=== PATIENT | female | born 1965 | race Caucasian/White ===

== ENCOUNTER 2016-04-22 11:54 | Emergency (ER) | payer OTHER ==
[2016-04-22 12:11] VITALS: BP 134/63; PULSE 83; TEMP 97.9; BMI 30.7
--- NOTE | 2016-04-22 12:59 | PDOC ---
History of Present Illness - General Chief Complaint: Rash Stated Complaint: REACTION Time Seen by Provider: 04/22/16 12:25 History Source: Patient Exam Limitations: No Limitations - History of Present Illness Initial Comments: 04/22/16 13:09 Patient came for evaluation of swelling and mild immobility to the right side of her face. States onset was March 28 when she's had some tenderness, and was evaluated by WILLEM Miranda and provided penicillin which she finished that course. States there was no improvement and had an onset of wheals to her thighs proximally 10 days after initiation of this course. Patient states are mildly pruritic. Was evaluated by ENT days ago who recommended additional course of amoxicillin and written a prescription for an x-ray of facial bones. Patient states the ENT Dr. used a scope and did not find any pathology with her sinuses or throat. Both of those doctors worried about a dental abscess which patient denies any recent dental injury, pain, swelling to gums or any oral issue. Timing/Duration: unsure (10 days) Severity: moderate Modifying Factors: improves with: medication Associated Symptoms: reports: malaise. denies: fever/chills, loss of appetite Past History - Travel Traveled outside of the country in the last 30 days: No Close contact w/someone who was outside of country & ill: No - Past Medical History Allergies/Adverse Reactions: Allergies Allergy/AdvReac Type Severity Reaction Status Date / Time No Known Allergies Allergy Verified 04/22/16 12:12 Home Medications: Ambulatory Orders Clindamycin Oral Solution [Cleocin Oral Solution -] 300 mg PO Q8H #400 ml Diphenhydramine [Benadryl 12.5 MG/5 ML Oral Solution -] 12.5 mg PO Q6H PRN #140 ml 04/22/16 Anemia: No Asthma: No Cancer: No Cardiac Disorders: No CVA: No COPD: No CHF: No Dementia: No Diabetes: No GI Disorders: No Disorders: No HTN: No Hypercholesterolemia: No Liver Disease: No Seizures: No Thyroid Disease: No - Surgical History Abdominal Surgery: Yes (TUMMY TUCK,LAP BAND) Appendectomy: No Cardiac Surgery: No Cholecystectomy: No Lung Surgery: No Neurologic Surgery: No Orthopedic Surgery: No - Immunization History Td Vaccination: No - Psycho/Social/Smoking Cessation Hx Anxiety: Yes Suicidal Ideation: No Smoking Status: Yes Smoking History: Never smoked Have you smoked in the past 12 months: Yes Number of Cigarettes Smoked Daily: 20 Information on smoking cessation initiated: No 'Breaking Loose' booklet given: 01/05/16 Hx Alcohol Use: No Drug/Substance Use Hx: No Substance Use Type: None Hx Substance Use Treatment: No Review of Systems - Review of Systems Able to Perform ROS?: Yes Is the patient limited Bangladeshi proficient: Yes Constitutional: Yes: Symptoms Reported, See HPI Respiratory: Yes: Symptoms reported ABD/GI: No: Symptoms Reported Musculoskeletal: No: Symptoms Reported Integumentary: Yes: Symptoms Reported All Other Systems: Reviewed and Negative *Physical Exam - Vital Signs Last Vital Signs Temp Pulse Resp BP Pulse Ox 97.9 F 83 18 134/63 98 04/22/16 12:08 04/22/16 12:08 04/22/16 12:08 04/22/16 12:08 04/22/16 12:08 - Physical Exam General Appearance: Yes: Nourished, Appropriately Dressed, Apparent Distress, Mild Distress, Moderate Distress HEENT: positive: GLENNA, TMs Normal, Nasal Congestion, Rhinorrhea, Other (shunt has palpable firm and tender mass at the right nasal labile fold under skin, no erythema, no pointing, no evidence of trauma or skin break. Mouth has no swelling, tenderness, or any dental injury/pain. MAsses approximately 3 cm) Neck: positive: Supple. negative: Tender, Lymphadenopathy (R), Lymphadenopathy (L) Respiratory/Chest: positive: Lungs Clear, Normal Breath Sounds Gastrointestinal/Abdominal: positive: Normal Bowel Sounds, Soft. negative: Tender Integumentary: positive: Normal Color. 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, Fully Oriented, Alert, Normal Mood/ Affect, Normal Response, Motor Strength 5/5 ED Treatment Course - RADIOLOGY Radiology Studies Ordered: Category Date Time Status FACIAL BONES CT W/O CONTRAST [CT] Stat CT Scan 04/22/16 12:49 Ordered Medical Decision Making - Medical Decision Making 04/22/16 14:16 *DC/Admit/Observation/Transfer Diagnosis at time of Disposition: Cellulitis and abscess of face - Discharge Dispostion Disposition: HOME Condition at time of disposition: Stable Admit: No - Prescriptions Prescriptions: Diphenhydramine [Benadryl 12.5 MG/5 ML Oral Solution -] 12.5 mg PO Q6H PRN #140 ml PRN Reason: itching Clindamycin Oral Solution [Cleocin Oral Solution -] 300 mg PO Q8H #400 ml - Referrals Referrals: Aldair Green MD [Primary Care Provider] - - Patient Instructions Printed Discharge Instructions: DI for Cellulitis -- Adult Additional Instructions: Fast tissue swelling to face possible abscess, will treat with clindamycin as patient has potential penicillin ALLERGY. - Post Discharge Activity Work/School Note: Back to Work
[2016-04-22] MEDS ORDERED: CLINDAMYCIN HCL 150 MG CAPSULE (FP) PO ONE (14:15)
== END 2016-04-22 15:11 | disposition home or self-care (01) ==
LOC: JERFT 11:54 → JER 11:54 → JERFT 15:11
DX: L03.211 Cellulitis of face (principal)
CPT/HCPCS: 70486-TC; 99281-25

== ENCOUNTER 2016-05-13 17:50 | Emergency (ER) | payer OTHER ==
[2016-05-13 18:25] VITALS: TEMP 98.4; BMI 29.9
--- NOTE | 2016-05-13 19:32 | PDOC ---
History of Present Illness <Mayank James - Last Filed: 05/13/16 20:15> - History of Present Illness Initial Comments: 05/13/16 20:23 The patient is a 51 year old female, with a significant past medical history of arthritis, who presents to the emergency department with increased swelling to her right face since March. She reports being seen by an oral and maxillary surgeon on 05/01 where she had xrays and a CT scan to rule out abscess. She reports also having a biopsy performed 5 days ago and is pending results. The patient presents today because she states the swelling has increased to the bridge of her nose and creating a frontal headache. The patient states the swelling is usually worse in the morning, however, slightly subsides by the end of the day, but became concerned today when the swelling did not subside. She denies chest pain, shortness of breath, headache and dizziness. She denies fever, chills, nausea, vomit, diarrhea and constipation. She denies dysuria, frequency, urgency and hematuria. Allergies: NKDA Past surgical history: tubal ligation, lap-band/tummy tuck Social history: tobacco use ENT: Dr. Serge Vargas <Iliana Adams - Last Filed: 05/13/16 20:39> - General Chief Complaint: Edema Stated Complaint: RT SIDE FACE SWOLLEN/PAIN Time Seen by Provider: 05/13/16 19:17 Past History - Past Medical History Anemia: No Asthma: No Cancer: No Cardiac Disorders: No CVA: No COPD: No CHF: No Dementia: No Diabetes: No GI Disorders: No Disorders: No HTN: No Hypercholesterolemia: No Liver Disease: No Seizures: No Thyroid Disease: No Other medical history: PT DENIES MEDICAL HX - Surgical History Abdominal Surgery: Yes (TUMMY TUCK,LAP BAND) Appendectomy: No Cardiac Surgery: No Cholecystectomy: No Lung Surgery: No Neurologic Surgery: No Orthopedic Surgery: No - Immunization History Td Vaccination: No - Psycho/Social/Smoking Cessation Hx Anxiety: Yes Suicidal Ideation: No Smoking Status: Yes Smoking History: Never smoked Have you smoked in the past 12 months: Yes Number of Cigarettes Smoked Daily: 20 Information on smoking cessation initiated: No 'Breaking Loose' booklet given: 01/05/16 Hx Alcohol Use: No Drug/Substance Use Hx: No Substance Use Type: None Hx Substance Use Treatment: No <Mayank James - Last Filed: 05/13/16 20:15> <Iliana Adams - Last Filed: 05/13/16 20:39> - Past Medical History Allergies/Adverse Reactions: Allergies Allergy/AdvReac Type Severity Reaction Status Date / Time No Known Allergies Allergy Verified 05/13/16 18:16 Home Medications: Ambulatory Orders Clindamycin Oral Solution [Cleocin Oral Solution -] 300 mg PO Q8H #400 ml Diphenhydramine [Benadryl 12.5 MG/5 ML Oral Solution -] 12.5 mg PO Q6H PRN #140 ml 04/22/16 Review of Systems - Review of Systems Able to Perform ROS?: Yes Comments:: 05/13/16 20:29 CONSTITUTIONAL: Absent: fever, chills, diaphoresis, generalized weakness, malaise, loss of appetite HEENT: (+) Right sided face swelling. Absent: rhinorrhea, nasal congestion, throat pain , throat swelling, difficulty swallowing, mouth swelling, ear pain, eye pain, visual Changes CARDIOVASCULAR: Absent: chest pain, syncope, palpitations, irregular heart rate, lightheadedness , peripheral edema RESPIRATORY: Absent: cough, shortness of breath, dyspnea with exertion, orthopnea, wheezing, stridor, hemoptysis GASTROINTESTINAL: Absent: abdominal pain, abdominal distension, nausea, vomiting, diarrhea, constipation, melena, hematochezia GENITOURINARY: Absent: dysuria, frequency, urgency, hesitancy, hematuria, flank pain, genital pain MUSCULOSKELETAL: Absent: myalgia, arthralgia, joint swelling SKIN: Absent: rash, itching, pallor HEMATOLOGIC/IMMUNOLOGIC: Absent: easy bleeding, easy bruising, lymphadenopathy, frequent infections ENDOCRINE: Absent: unexplained weight gain, unexplained weight loss, heat intolerance, cold intolerance NEUROLOGIC: (+) headache. Absent: focal weakness or paresthesias, dizziness, unsteady gait , seizure, mental status changes, bladder or bowel incontinence PSYCHIATRIC: Absent: anxiety, depression, suicidal or homicidal ideation, hallucinations. <Iliana Adams - Last Filed: 05/13/16 20:39> *Physical Exam - Vital Signs Last Vital Signs Temp Pulse Resp BP Pulse Ox 98.4 F 86 18 125/94 97 05/13/16 18:12 05/13/16 18:12 05/13/16 18:12 05/13/16 18:12 05/13/16 18:12 <JacobMayank - Last Filed: 05/13/16 20:15> - Vital Signs Last Vital Signs Temp Pulse Resp BP Pulse Ox 98.4 F 86 18 125/94 97 05/13/16 18:12 05/13/16 18:12 05/13/16 18:12 05/13/16 18:12 05/13/16 18:12 - Physical Exam Comments: 05/13/16 20:30 GENERAL: Well developed, well nourished. Awake and alert. No acute distress. HEENT: (+) palpable, firm, indurated, immobile, right sided mass. slightly tender to palpation. No sign of topical cellulitis. No necrotic teeth. No tongue or oral lesion. No submandibular lymphadenopathy. Normocephalic, atraumatic. PERRLA, EOMI. No conjunctival pallor. Sclera are non-icteric. Moist mucous membranes. Oropharynx is clear. NECK: Supple. Full ROM. No JVD. Carotid pulses 2+ and symmetric, without bruits. No thyromegaly. No lymphadenopathy. CARDIOVASCULAR: Regular rate and rhythm. No murmurs, rubs, or gallops. Distal pulses are 2+ and symmetric. PULMONARY: No evidence of respiratory distress. Lungs clear to auscultation bilaterally. No wheezing, rales or rhonchi. ABDOMINAL: Soft. Non-tender. Non-distended. No rebound or guarding. No organomegaly. Normoactive bowel sounds. MUSCULOSKELETAL Normal range of motion at all joints. No bony deformities or tenderness. No CVA tenderness. EXTREMITIES: No cyanosis. No clubbing. No edema. No calf tenderness. SKIN: Warm and dry. Normal capillary refill. No rashes. No jaundice. NEUROLOGICAL: Alert, awake, appropriate. Cranial nerves 2-12 intact. Normoreflexic in the upper and lower extremities. Normal speech. Toes are down-going bilaterally. Gait is normal without ataxia. PSYCHIATRIC: Cooperative. Good eye contact. Appropriate mood and affect. <Iliana Adams - Last Filed: 05/13/16 20:39> Medical Decision Making - Medical Decision Making 05/13/16 19:35 I have reviewed all the the provided document BIB patient including CT results and discharge packet from previous ER visit. Biopsy report is still pending. Dr. Serge Vargas was paged at 19:35 requesting a callback for doctor to doctor consult. At 19:45, the ENT on-call covering physician, Dr. Ramos returned our call and the patient's case was discussed in detail. ENT specialist advises the patient to follow-Up with Head/Neck Surgeons Dr. Reza Leyva or Dr. JEAN-PIERRE Cunningham at [facility]. <Iliana Adams - Last Filed: 05/13/16 20:39> *DC/Admit/Observation/Transfer - Discharge Dispostion Admit: No - Attestations Physician Attestion: 05/13/16 20:16 Patient is following up with Head and Neck Surgery at [facility]. <Mayank James - Last Filed: 05/13/16 20:15> - Attestations Scribe Attestion: 05/13/16 20:39 Documentation prepared by Iliana Adams, acting as medical facilities section director for Mayank James MD, MD <Iliana Adams - Last Filed: 05/13/16 20:39> Diagnosis at time of Disposition: Swelling, mass, or lump on face - Discharge Dispostion Disposition: HOME - Referrals Referrals: Aldair Green MD [Primary Care Provider] - - Patient Instructions Additional Instructions: follow up with Head and Neck Surgery at [facility]
[2016-05-13 20:24] VITALS: BP 130/70; PULSE 70
== END 2016-05-13 20:24 | disposition home or self-care (01) ==
LOC: JER 17:50
DX: R22.9 Localized swelling, mass and lump, unspecified (principal)
CPT/HCPCS: 99283-25

== ENCOUNTER 2016-08-14 10:12 | Inpatient (IN) | payer OTHER ==
--- NOTE | 2016-08-14 10:25 | PDOC ---
History of Present Illness <Silvestre Rios - Last Filed: 08/14/16 12:42> - History of Present Illness Initial Comments: 08/14/16 13:10 The patient is a 51 year old female, with a significant past medical history of lap-band/tummy tuck and arthritis , who presents to the emergency department with progressively worsening epigastric burning and inability to hold down food for 4 weeks. She states her symptoms began as acid reflux which was shortly followed by a white, foam-like emesis after eating solid foods. She states she has not been able to eat a meal without experiencing a blockage as she points to her epigastric region. She states that about a week ago she noticed her symptoms we exacerbated after drinking water. She reports seeing her surgeon , Dr. Armand Romero twice in the past 2 weeks for evaluation of her symptoms, who suggested the patient may need revision to her lap-band. She also reports calling Dr. Melgoza office today who suggested she come to the ED for admission. The patient reports having 3 xrays of her chest and abdomen in the past 6-8 weeks. She also reports having water taken out from her stomach when she saw Dr. Romero, however, the patient is unsure of the exact date or the type of procedure that was performed for the extraction of fluid from her stomach. She denies chest pain, shortness of breath, headache and dizziness. She denies fever, chills, nausea, diarrhea and constipation. She denies dysuria, frequency , urgency and hematuria. Allergies: NKDA Social history: NKDA Surgeon: Dr. Armand Romero <Iliana Adams - Last Filed: 08/14/16 19:00> - General Chief Complaint: Nausea/Vomiting Stated Complaint: (PCP SENT) EVALUATION Time Seen by Provider: 08/14/16 10:25 Past History - Past Medical History Anemia: No Asthma: No Cancer: No Cardiac Disorders: No CVA: No COPD: No CHF: No Dementia: No Diabetes: No GI Disorders: No Disorders: No HTN: No Hypercholesterolemia: No Liver Disease: No Seizures: No Thyroid Disease: No - Surgical History Abdominal Surgery: Yes (TUMMY TUCK,LAP BAND) Appendectomy: No Cardiac Surgery: No Cholecystectomy: No Lung Surgery: No Neurologic Surgery: No Orthopedic Surgery: No - Immunization History Td Vaccination: No - Psycho/Social/Smoking Cessation Hx Anxiety: Yes Suicidal Ideation: No Smoking Status: Yes Smoking History: Current every day smoker Have you smoked in the past 12 months: Yes Number of Cigarettes Smoked Daily: 20 Information on smoking cessation initiated: Yes 'Breaking Loose' booklet given: 08/14/16 Hx Alcohol Use: No Drug/Substance Use Hx: No Substance Use Type: None Hx Substance Use Treatment: No <Silvestre Rios - Last Filed: 08/14/16 12:42> <Iliana Adams - Last Filed: 08/14/16 19:00> - Past Medical History Allergies/Adverse Reactions: Allergies Allergy/AdvReac Type Severity Reaction Status Date / Time No Known Allergies Allergy Verified 08/14/16 10:19 Home Medications: Ambulatory Orders Famotidine [Pepcid] 20 mg PO BID #60 tablet 08/14/16 Oxycodone HCl/Acetaminophen [Percocet 5-325 mg Tablet] 1 - 2 tab PO Q6H #28 tab MDD 4 08/14/16 Review of Systems - Review of Systems Able to Perform ROS?: Yes Comments:: 08/14/16 13:10 GENERAL/CONSTITUTIONAL: No fever or chills. No weakness. HEAD, EYES, EARS, NOSE AND THROAT: No change in vision. No ear pain or discharge. No sore throat. CARDIOVASCULAR: No chest pain or shortness of breath. RESPIRATORY: No cough, wheezing, or hemoptysis. GASTROINTESTINAL: (+) foam-like emesis after PO intake. Persistent epigastric burning. No nausea, diarrhea or constipation. GENITOURINARY: No dysuria, frequency, or change in urination. MUSCULOSKELETAL: No joint or muscle swelling or pain. No neck or back pain. SKIN: No rash NEUROLOGIC: No headache, vertigo, loss of consciousness, or change in strength/ sensation. ENDOCRINE: No increased thirst. No abnormal weight change. HEMATOLOGIC/LYMPHATIC: No anemia, easy bleeding, or history of blood clots. ALLERGIC/IMMUNOLOGIC: No hives or skin allergy. <Iliana Adams - Last Filed: 08/14/16 19:00> *Physical Exam - Vital Signs Last Vital Signs Temp Pulse Resp BP Pulse Ox 98.3 F 87 19 134/98 100 08/14/16 10:17 08/14/16 10:17 08/14/16 10:08/14/16 10:17 08/14/16 10:17 <Silvestre Rios - Last Filed: 08/14/16 12:42> - Vital Signs Last Vital Signs Temp Pulse Resp BP Pulse Ox 98.3 F 87 19 134/98 100 08/14/16 10:17 08/14/16 10:17 08/14/16 10:17 08/14/16 10:17 08/14/16 10:17 - Physical Exam Comments: 08/14/16 13:11 GENERAL: Awake, alert, and fully oriented, in no acute distress HEAD: No signs of trauma EYES: PERRLA, EOMI, sclera anicteric, conjunctiva clear ENT: Auricles normal inspection, hearing grossly normal, nares patent, oropharynx clear without exudates. Moist mucosa NECK: Normal ROM, supple, no lymphadenopathy, JVD, or masses LUNGS: Breath sounds equal, clear to auscultation bilaterally. No wheezes, and no crackles HEART: Regular rate and rhythm, normal S1 and S2, no murmurs, rubs or gallops ABDOMEN: Soft, nontender, normoactive bowel sounds. No guarding, no rebound. No masses EXTREMITIES: Normal range of motion, no edema. No clubbing or cyanosis. No cords, erythema, or tenderness NEUROLOGICAL: Cranial nerves II through XII grossly intact. Normal speech, normal gait SKIN: Warm, Dry, normal turgor, no rashes or lesions noted. <Iliana Adams - Last Filed: 08/14/16 19:00> Heart Score/ECG Review - ECG Intrepretation Comment:: 08/14/16 11:07 EKG was read by Dr. Rios at 11:05 Impression: Normal sinus rhythm. Possible left atrial enlargement. <Iliana Adams - Last Filed: 08/14/16 19:00> ED Treatment Course - LABORATORY CBC & Chemistry Diagram: 08/14/16 10:58 08/14/16 10:58 <Silvestre Rios - Last Filed: 08/14/16 12:42> - LABORATORY CBC & Chemistry Diagram: 08/14/16 10:58 08/14/16 10:58 - ADDITIONAL ORDERS Additional order review: Laboratory Results 08/14/16 08/14/16 08/14/16 11:09 10:58 10:58 INR Sodium 139 Potassium 3.8 Chloride 102 Carbon Dioxide 29 Anion Gap 8 BUN 19 H D Creatinine 0.6 Creat Clearance w eGFR > 60 Random Glucose 90 D Calcium 9.4 Total Bilirubin 0.5 D AST 18 D ALT 21 Alkaline Phosphatase 65 Creatine Kinase 50 Troponin I < 0.02 B-Natriuretic Peptide 30.55 Total Protein 7.0 Albumin 3.7 Lipase 121 Serum , Qual Negative Urine Color Dang Urine Appearance Cloudy Urine pH 5.0 Urine Protein 1+ H Urine Glucose (UA) Negative Urine Ketones Trace H Urine Blood 1+ H Urine Nitrite Negative Urine Bilirubin Negative Urine Urobilinogen Negative Ur Leukocyte Esterase Trace H Urine RBC 2 Urine WBC 12 Ur Epithelial Cells Many Calcium Oxalate Crystal Rare Urine Bacteria Moderate Urine Mucus Many 08/14/16 10:58 INR 1.15 H Sodium Potassium Chloride Carbon Dioxide Anion Gap BUN Creatinine Creat Clearance w eGFR Random Glucose Calcium Total Bilirubin AST ALT Alkaline Phosphatase Creatine Kinase Troponin I B-Natriuretic Peptide Total Protein Albumin Lipase Serum , Qual Urine Color Urine Appearance Urine pH Urine Protein Urine Glucose (UA) Urine Ketones Urine Blood Urine Nitrite Urine Bilirubin Urine Urobilinogen Ur Leukocyte Esterase Urine RBC Urine WBC Ur Epithelial Cells Calcium Oxalate Crystal Urine Bacteria Urine Mucus 08/14/16 10:58 RBC 5.34 H MCV 81.7 MCHC 32.9 RDW 15.5 MPV 7.9 Neutrophils % 68.0 Lymphocytes % 25.9 D Monocytes % 4.6 Eosinophils % 0.9 Basophils % 0.6 - RADIOLOGY Radiograph Interpretation: 08/14/16 18:59 Xray was read by Dr. Jacques at 13:29 Impression: No acute pathology. <Iliana Adams - Last Filed: 08/14/16 19:00> Medical Decision Making - Medical Decision Making 08/14/16 13:12 The patient is a 51 year old female who presents with persistent epigastric burning and emesis after PO intake for about 4 weeks. The patients medical history is significant for GERD s/p lapband procedure. I will obtain CXR, EKG, urinalysis and CBC to rule out dehydration, pancreatitis and I will consult Dr. Romero. Dr. Romero, General Surgeon, was called at the office and the patient's case was discussed. Dr. Romero will admit this patient and plans to see her tonight or early tomorrow morning for surgery. Dr. Arad requests the patient be NPO at this time. <Iliana Adams - Last Filed: 08/14/16 19:00> *DC/Admit/Observation/Transfer - Discharge Dispostion Admit: Yes - Attestations Physician Attestion: 08/14/16 10:25 I, Dr. Silvestre Rios, attest that this document has been prepared under my direction and personally reviewed by me in its entirety. I further attest, that it accurately reflects all work, treatment, procedures and medical decision -making performed by me. <Silvestre Rios - Last Filed: 08/14/16 12:42> - Attestations Scribe Attestion: 08/14/16 13:11 Documentation prepared by Iliana Adams, acting as medical office technologist for Silvestre Rios MD <Iliana Adams - Last Filed: 08/14/16 19:00> Diagnosis at time of Disposition: LAP-BAND surgery status, Reflux esophagitis Vomiting Qualifiers: Vomiting type: unspecified Vomiting Intractability: non-intractable Nausea presence: with nausea Qualified Code(s): R11.2 - Nausea with vomiting, unspecified - Discharge Dispostion Condition at time of disposition: Unchanged/Unknown - Prescriptions
[2016-08-14 11:58] LABS: BASOPHIL 0.6 % (0-2.0); EOSINOPHIL 0.9 % (0-4.5); MCH 26.9 pg (25.7-33.7); MCHC 32.9 g/dl (32.0-36.0); MEAN CELL VOLUME 81.7 fl (80-96); MEAN PLT VOLUME 7.9 fl (7.5-11.1); PLATELET COUNT 238 K/MM3 (134-434); RDW 15.5 % (11.6-15.6)
[2016-08-14 12:05] LABS: URINE APPEARANCE CLOUDY; URINE BILIRUBIN NEGATIVE (NEGATIVE); URINE COLOR AMBER; URINE GLUCOSE (UA) NEGATIVE (NEGATIVE); URINE KETONE TRACE (NEGATIVE); URINE NITRITE NEGATIVE (NEGATIVE); URINE UROBILINOGEN NEGATIVE E.U./dl (0.2-1.0)
[2016-08-14 12:14] LABS: URINE BLOOD 1+ (NEGATIVE); URINE LEUK ESTERASE TRACE (NEGATIVE); URINE PROTEIN 1+ (NEGATIVE)
[2016-08-14 12:20] LABS: ALBUMIN 3.7 g/dl (3.4-5.0); ANION GAP 8 (8-16); BILIRUBIN,TOTAL 0.5 mg/dL (0.2-1.0); CALCIUM 9.4 mg/dL (8.5-10.1); CO2 29 mmol/L (21-32); COCKROFT - GAULT 140.5645; CREATININE 0.6 mg/dL (0.55-1.02); GLUCOSE,RANDOM 90 mg/dL (74-106); SGOT/AST 18 U/L (15-37); SGPT/ALT 21 U/L (12-78)
[2016-08-14 12:23] LABS: ALK PHOS 65 U/L (45-117); TROPONIN I < 0.02 ng/ml (0.00-0.05)
[2016-08-14 12:30] LABS: INR 1.15 (0.82-1.09); PROTHROMBIN TIME (PATIENT) 12.7 SEC (9.98-11.88)
[2016-08-14] MEDS ORDERED: SODIUM CHLORIDE 1,000 ML IV ONE (12:39)
[2016-08-14 13:00] LABS: CALCIUM OXALATE CRYSTALS RARE /hpf (NONE SEEN); URINE BACTERIA MODERATE /hpf (NONE SEEN); URINE MUCUS MANY; URINE RBC 2 /hpf (0-3); URINE WBC 12 /hpf (3-5)
--- NOTE | 2016-08-14 14:03 | EKG ---
Test Reason : Blood Pressure : / mmHG Vent. Rate : 086 BPM Atrial Rate : 086 BPM P-R Int : 160 ms QRS Dur : 084 ms QT Int : 372 ms P-R-T Axes : 036 -16 009 degrees QTc Int : 445 ms NORMAL SINUS RHYTHM POSSIBLE LEFT ATRIAL ENLARGEMENT CANNOT RULE OUT ANTERIOR INFARCT , AGE UNDETERMINED ABNORMAL ECG WHEN COMPARED WITH ECG OF 03-OCT-2015 08:59, T WAVE VARIATION Confirmed by CHANTELL BUTLER MD ([id number]) on 08/14/2016 2:03:35 PM Referred By: Confirmed By:CHANTELL BUTLER MD
[2016-08-14] MEDS ORDERED: PANTOPRAZOLE SODIUM 40 MG/100 ML PRE-DOCKED IVPB SCH (17:45)
[2016-08-14 17:58] VITALS: BMI 26.4
[2016-08-14] MEDS ORDERED: HYDROmorphone HCL CARPU-JECT 1 MG/1 ML DISP.SYRIN IVPB PRN (18:23)
[2016-08-14] MEDS ORDERED: ONDANSETRON 4 MG/2 ML VIAL IVPB PRN ×2 (18:23→22:41)
[2016-08-14] MEDS ORDERED: SODIUM CHLORIDE 1,000 ML IV SCH ×2 (18:30→22:41)
--- NOTE | 2016-08-14 18:30 | HP ---
Admitting History and Physical - Admission Chief Complaint: Dysphagia, GERD, Abdominal pain History of Present Illness: 51 female s/p lap band with good weight loss results presents for dysphagia and difficulty tolerating any diet including clears Has had all of the fluid previously aspirated and is still having dysphagia despite the band being empty Presented to ER for dysphagia,reflux and abdominal pain mostly in the epigastric region History Source: Patient, Medical Record Limitations to Obtaining History: No Limitations - Past Medical History Gastrointestinal: Yes: Other (History of morbid obesity) ...LMP: 12/19/15 ...: No (URINE PREG TEST NEG) - Past Surgical History Past Surgical History: Yes: Bariatric Surgery (Lap Band) - Smoking History Smoking history: Current every day smoker Have you smoked in the past 12 months: Yes Aproximately how many cigarettes per day: 20 - Alcohol/Substance Use Hx Alcohol Use: No Home Medications - Allergies Allergies/Adverse Reactions: Allergies Allergy/AdvReac Type Severity Reaction Status Date / Time No Known Allergies Allergy Verified 08/14/16 10:19 - Home Medications Home Medications: Ambulatory Orders Famotidine [Pepcid] 20 mg PO BID #60 tablet 08/14/16 Oxycodone HCl/Acetaminophen [Percocet 5-325 mg Tablet] 1 - 2 tab PO Q6H #28 tab MDD 4 08/14/16 Family Disease History - Family Disease History Family History: Unremarkable Review of Systems - Review of Systems Constitutional: denies: Chills, Fever HENT: reports: Difficult Swallowing Neck: reports: No Symptoms Cardiovascular: denies: Chest Pain Respiratory: denies: Cough Gastrointestinal: reports: Abdominal Pain (Epigastric) Genitourinary: reports: No Symptoms Neurological: denies: Change in LOC Endocrine: reports: No Symptoms Hematology/Lymphatic: reports: No Symptoms Psychiatric: reports: No Symptoms Pain Intensity: 4 Physical Examination Vital Signs: Vital Signs Temperature 98.2 F 08/14/16 17:52 Pulse Rate 77 08/14/16 17:52 Respiratory Rate 20 08/14/16 17:52 Blood Pressure 138/81 08/14/16 17:52 O2 Sat by Pulse Oximetry (%) 99 08/14/16 15:40 Constitutional: Yes: Calm, Mild Distress HENT: Yes: Atraumatic Neck: Yes: Supple Cardiovascular: Yes: Regular Rate and Rhythm Respiratory: Yes: Regular Gastrointestinal: Yes: Soft, Tenderness (Mild epigastric tenderness). No: Distention, Tenderness, Rebound Renal/: No: CVA Tenderness - Right Extremities: Yes: WNL Neurological: Yes: Alert, Oriented Labs: CBC, BMP 08/14/16 10:58 08/14/16 10:58 Problem List - Problems (1) LAP-BAND surgery status Code(s): Z98.84 - BARIATRIC SURGERY STATUS (2) Dysphagia Code(s): R13.10 - DYSPHAGIA, UNSPECIFIED Qualifiers: Dysphagia type: oral phase Qualified Code(s): R13.11 - Dysphagia, oral phase (3) Abdominal pain Code(s): R10.9 - UNSPECIFIED ABDOMINAL PAIN Qualifiers: Abdominal location: epigastric Qualified Code(s): R10.13 - Epigastric pain (4) GERD (gastroesophageal reflux disease) Code(s): K21.9 - GASTRO-ESOPHAGEAL REFLUX DISEASE WITHOUT ESOPHAGITIS Qualifiers: Esophagitis presence: esophagitis presence not specified Qualified Code(s): K21.9 - Gastro-esophageal reflux disease without esophagitis Assessment/Plan 51 female s/p lap band placement with recurrent dysphagia, abdominal pain, and reflux All the fluid had been previously removed from the lap band and the patient is still having difficulty eating anything including clears due to the band Also had chronic epigastric pain and reflux from the band For laparoscopic revision of band/possible removal of band, port and components NPO IV fluids Risks and benefits explained Understands and agrees
[2016-08-14] MEDS ORDERED: BUPIVACAINE HCL/PF 0.5% (5MG/ML) 10 ML VIAL ONE (20:22)
[2016-08-14] MEDS ORDERED: PROPOFOL 20 ML ONE (20:22)
[2016-08-14] MEDS ORDERED: ROCURONIUM BROMIDE 50 MG/5 ML VIAL ONE (20:22)
[2016-08-14] MEDS ORDERED: DEXAMETHASONE SOD PHOSPHATE 4 MG/1 ML VIAL ONE ×2 (20:22→21:57)
[2016-08-14] MEDS ORDERED: ceFAZolin SODIUM 1 GM VIAL IVPB ONE (20:40)
[2016-08-14] MEDS ORDERED: METHYLENE BLUE 1% 10 MG/1 ML VIAL NR ONE ×2 (21:01→21:45)
[2016-08-14] MEDS ORDERED: HYDROmorphone HCL CARPU-JECT 1 MG/1 ML DISP.SYRIN IVPUSH PRN (21:11)
[2016-08-14] MEDS ORDERED: SODIUM CHLORIDE 0.9% P/F 10 ML VIAL IJ ONE (21:30)
[2016-08-14] MEDS ORDERED: NEOSTIGMINE METHYLSULFATE 0.5 MG/ML - 10 ML MDV ONE (21:52)
[2016-08-14] MEDS ORDERED: GLYCOPYRROLATE 0.2 MG/1 ML VIAL ONE (21:52)
[2016-08-14] MEDS ORDERED: BUPIVACAINE HCL/PF 0.5% (5MG/ML) 10 ML VIAL IJ ONE (22:03)
[2016-08-14] MEDS ORDERED: ACETAMINOPHEN 1000 MG/100 ML VIAL (NON FORMULARY) IVPB PRN ×2 (22:16→22:41)
--- NOTE | 2016-08-14 22:20 | OP ---
Operative Note - Note: Operative Date: 08/14/16 Pre-Operative Diagnosis: Dysphagia, abdominal pain, reflux Operation: Laparoscopic removal of lap band, port and components. Laparoscopic capsulotomy Findings: Gastric obstruction from lap band Post-Operative Diagnosis: Other (Dysphagia, abdominal pain, reflux from lap band obstruction) Surgeon: Armand Romero Surgical Aides Teacher: Ruben Medina Anesthesia: General Specimens Removed: None Estimated Blood Loss (mls): 5 Operative Report Dictated: Yes
[2016-08-14] MEDS ORDERED: HYDROmorphone HCL CARPU-JECT 2 MG/1 ML DISP.SYRIN ONE (22:24)
[2016-08-14] MEDS ORDERED: ACETAMINOPHEN INJECTION 100 ML IVPB ONE (22:48)
--- NOTE | 2016-08-14 23:52 | OP ---
DATE OF OPERATION: 08/14/2016 SURGEON: Armand Romero M.D. LONG GOODS DRIER: Ruben Medina M.D. PREOPERATIVE DIAGNOSIS: Dysphagia, abdominal pain, and reflux from likely lap band obstruction. POSTOPERATIVE DIAGNOSIS: Dysphagia, abdominal pain, and reflux from obstruction due to lap band. PROCEDURE: Laparoscopic removal of lap band, port and components, laparoscopic capsulotomy. SPECIMENS: None. ESTIMATED BLOOD LOSS: 5 mL. DRAINS: None. ANESTHESIA: GT. REASON FOR THE PROCEDURE: This is a 51-year-old female who presented to the ER for dysphagia with inability to tolerate any diet including clears, epigastric abdominal pain, and severe reflux. She had been seen previously on multiple occasions for band adjustments due to similar symptoms; however, at this time, the symptoms were progressively worse, and she was unable to tolerate anything p.o. Because of this, she was consented for a laparoscopic removal of gastric band, port and components. The risks and benefits of the procedure were explained, including bleeding, infection, hernia, CA, DVT, PE, injury to surrounding structures including the esophagus, stomach, spleen, colon, pancreas, vessel injury, nerve injury, gastric leak, persistent obstruction as some of the complications. She understood and agreed and signed informed consent. DESCRIPTION OF PROCEDURE: Patient was placed supine on the operating room table. She underwent general endotracheal intubation. The abdomen was prepped and draped in the usual sterile fashion. Timeout was performed. An incision was made in the left upper quadrant. Veress needle was inserted. Pneumoperitoneum was established. Subsequently the Veress needle was removed, and a 5-mm Optiview trocar was placed under direct visualization with the laparoscope. Inspection of the abdomen was obtained with the laparoscope. A 12-mm trocar was inserted under direct visualization just above the level of the previously placed port. A 5-mm trocar was placed in the right upper quadrant. A stab wound was made in the subxiphoid area, and a clamp inserted to dilate the tract and [place] liver retractor was inserted. The post was secured at the bedside, and the patient was placed in steep reverse Trendelenburg position. The liver retractor was secured to the post after liver was retracted toward the anterior abdominal wall. The band was noted to have slipped anteriorly and causing obstruction. Hook electrocautery was used to free up the surrounding structures; using the band as a guide, the band was freed anteriorly. Further dissection was performed towards the buckle of the lap band. The band was opened. Further dissection was performed toward the greater curvature, again using the band as a guide in order to free up part of the wrap as well as to free up the band further. The band tubing was then run and the band tubing was cut with a scissor. The band was mobilized around the stomach, and the thicker portion of the band was cut and transected, this was removed from the abdominal cavity. The remainder of the band and attached tubing was removed from the abdominal cavity. These two pieces were put together and noted to match completely. At this point, attention was placed again to the stomach. Using a [place] grasper and a scissors, the capsule was grasped and incised. The capsule was completely opened from an inferior to superior position allowing the stomach to open and relieve the obstruction fully. This was done to carefully perform the capsulotomy without damaging the underlying stomach. Once the capsulotomy was fully performed, it was noted that the stomach was no longer obstructed. Prior sutures from the wrap were also cut with Metzenbaum scissors to allow further relief of the obstruction. Copious irrigation suction performed until clear. Anesthesia placed an OG tube just within the proximal stomach. Methylene blue was inserted via the OG tube and no leak was identified. Two small areas of the stomach were oversewed with an Endo Stitch 2-0 Ethibond suture for further buttressing of the stomach. Again, hemostasis was noted. A Surgicel was placed over the area of the stomach because of the extensive raw surface. At this point the liver retractor was removed from the field under direct visualization. The 12-mm trocar was removed under direct visualization, and the trocar site was noted to be hemostatic. The remaining trocars were removed after pneumoperitoneum was desufflated. The patient was placed supine. The area of the port was then dissected down to the level of the port. The port was completely freed circumferentially and removed from the abdominal wall off the field. The tubing was inspected and noted to match to the previously removed portion of the tubing. Bovie electrocautery was used to allow for hemostasis at the trocar site. Hemostasis was noted at the end. Marcaine injected at all sites. 3-0 Vicryl suture was used for the deep tissue at the 12-mm trocar site. All skin incisions were closed using 4-0 Biosyn. Sterile dressing applied. The patient tolerated the procedure well and transferred to recovery room in stable condition . Benigno FLORES/[id number] MTDD
[2016-08-15] MEDS: HYDROmorphone HCL CARPU-JECT 1 MG/1 ML DISP.SYRIN IVPB PRN ×2 (02:05→06:57)
[2016-08-15] MEDS: SODIUM CHLORIDE 1,000 ML IV SCH ×2 (02:05→07:33)
[2016-08-15 07:20] LABS: BASOPHIL 0.2 % (0-2.0); MCH 27.3 pg (25.7-33.7); MCHC 33.3 g/dl (32.0-36.0); MEAN CELL VOLUME 81.9 fl (80-96); MEAN PLT VOLUME 7.6 fl (7.5-11.1); NEUTROPHILS 89.5 % (42.8-82.8); PLATELET COUNT 191 K/MM3 (134-434); RDW 14.8 % (11.6-15.6); WHITE BLOOD COUNT 6.5 K/mm3 (4.0-10.0)
[2016-08-15 07:44] LABS: CALCIUM 8.7 mg/dL (8.5-10.1); COCKROFT - GAULT 167.7135; CREATININE 0.5 mg/dL (0.55-1.02)
[2016-08-15] MEDS ORDERED: PANTOPRAZOLE SODIUM 40 MG/100 ML PRE-DOCKED IVPB SCH (10:00)
[2016-08-15] MEDS ORDERED: ENOXAPARIN NA (PORCINE) 40 MG/0.4 ML DISP.SYRIN SQ SCH ×2 (10:00)
--- NOTE | 2016-08-15 10:48 | PN ---
Progress Note (short form) - Note Progress Note: POD 1 Laparoscopic removal of gastric band, port and components, capsulotomy Pain controlled with medication Vital Signs Period Temp Pulse Resp BP Sys/Silva Pulse Ox Last 24 Hr 97.5 F-98.5 F 59-84 16-20 112-160/65-93 96-100 Abd soft, incisional tenderness CBC, BMP 08/15/16 06:30 08/15/16 06:30 UGI- no leak, no obstruction Clears D/C home Instructed to stay on clears for 48 hours and then slowly advance diet F/U in 2 weeks Problem List - Problems (1) LAP-BAND surgery status Code(s): Z98.84 - BARIATRIC SURGERY STATUS (2) Dysphagia Code(s): R13.10 - DYSPHAGIA, UNSPECIFIED Qualifiers: Dysphagia type: oral phase Qualified Code(s): R13.11 - Dysphagia, oral phase (3) Abdominal pain Code(s): R10.9 - UNSPECIFIED ABDOMINAL PAIN Qualifiers: Abdominal location: epigastric Qualified Code(s): R10.13 - Epigastric pain (4) GERD (gastroesophageal reflux disease) Code(s): K21.9 - GASTRO-ESOPHAGEAL REFLUX DISEASE WITHOUT ESOPHAGITIS Qualifiers: Esophagitis presence: esophagitis presence not specified Qualified Code(s): K21.9 - Gastro-esophageal reflux disease without esophagitis
--- NOTE | 2016-08-15 10:49 | DS ---
Physical Examination Vital Signs: Vital Signs Temperature 97.5 F L 08/15/16 06:31 Pulse Rate 66 08/15/16 06:31 Respiratory Rate 20 08/15/16 06:31 Blood Pressure 112/66 08/15/16 06:31 O2 Sat by Pulse Oximetry (%) 100 08/14/16 23:56 Constitutional: Yes: Calm Eyes: Yes: WNL HENT: Yes: WNL Neck: Yes: Supple Cardiovascular: Yes: Regular Rate and Rhythm Respiratory: Yes: Regular Gastrointestinal: Yes: Soft. No: Tenderness, Rebound Wound/Incision: Yes: Clean/Dry Neurological: Yes: Alert, Oriented Labs: CBC, BMP 08/15/16 06:30 08/15/16 06:30 Discharge Summary Reason For Visit: VOMITING/REFLUX ESOPHAGITIS,LAP BAND SURG Current Active Problems Abdominal pain (Acute) Dysphagia (Acute) GERD (gastroesophageal reflux disease) (Acute) LAP-BAND surgery status (Acute) Reflux esophagitis (Acute) Vomiting (Acute) Procedures: Principal: Laparoscopic removal of gastric band, port and components , capsulotomy Condition: Stable - Instructions Diet, Activity, Other Instructions: [address] [facility] Armand Romero M.D. [address] [place] [address],[address] Weight Loss & Surgery [facility] Robotic, Bariatric and General Surgery Postoperative Instructions for General Surgery Activity: Resume normal everyday activity as tolerated. You may walk and climb stairs without any limitation. We encourage you to walk as often as you can Do not lift anything more than 10 pounds for 8 weeks. At that time, you can return to full activity, including the gym, without limitation. Do not drive a motor vehicle while taking prescribes narcotic pain medication. Wound Care: If you have a bandage in place, leave it on for 3 days. At that time you may remove the outer bandage. If there are strips of tape on the skin after removing the outer bandage, leave them in place. They will fall off by themselves. Do not remove them. If there is clear glue on the skin after removing the outer bandage, leave it in place. Do not pick at it or peel it off. You may shower after taking the outer bandage off, 3 days after your surgery. For male groin hernia patients: you may notice a black and blue discoloration of your testicles. This is normal and should resolve over the next week or two. If this persists, please call the office. Diet: You may continue your regular diet at home. If you have a history of high blood pressure, you should be on a low sodium diet. If you have a history of Diabetes Mellitus, you should be on a diabetic/sugar controlled diet. If you had your gallbladder removed, you should be on a low cholesterol/low fat diet. Medications/Pain Management: You may resume previous medications unless told otherwise. You may take the prescribed narcotic pain medication as needed. If the narcotic medication is not needed for pain control, you may take Tylenol. Avoid all other pain medications including Advil, Ibuprofen, Motrin, Aspirin, Naprosyn, Aleve, Celebrex. Vomiting/Nausea: This may occur if you eat too fast, don't chew, or eat too much. Go back to fluids. If the vomiting or nausea persists, call the office. Constipation/Diarrhea: You may experience a change in bowel habits. Many things affect this, including taking pain medication. If either persist, call the office. Follow up: Call the office at [phone] for an appointment 2 weeks after your surgical procedure. Referrals: Aldair Green MD [Primary Care Provider] - Disposition: HOME - Home Medications Comprehensive Discharge Medication List: Ambulatory Orders Famotidine [Pepcid] 20 mg PO BID #60 tablet 08/14/16 Oxycodone HCl/Acetaminophen [Percocet 5-325 mg Tablet] 1 - 2 tab PO Q6H #28 tab MDD 4 08/14/16
[2016-08-15 11:44] VITALS: BP 120/87; PULSE 78; TEMP 98.2
--- NOTE | 2016-08-16 12:44 | PATH ---
Surgical Pathology Report Patient Name: AMINA ARAIZA Med. Rec. #: [id number] /Age/Gender: 1965 (Age: 51) / F Account: [id number] Location: [facility] MED/SURG Taken: 08/14/2016 Received: 08/15/2016 Reported: 08/16/2016 Physicians: Armand Romero M.D. 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 Electronically Signed Ismael Soler M.D. Gross Description Received fresh labeled "removed lap band and port components" are 2 portions of a disrupted lap band measuring 4.0 x 1.5 x 0.8 cm and 9.5 x 2.0 x 0.8 cm. The larger portion displays an attached 45 cm in length portion of tubing extending from one aspect. Also received within the same container is a 3 cm in diameter x 1.5 cm in depth white, circular device, consistent with a port. The port displays an attached 14 cm in length portion of tubing extending from one aspect. No soft tissue is present. No sections are submitted, gross only. /08/15/2016 saudi08/15/2016
== END 2016-08-15 11:56 | disposition home or self-care (01) | DRG 222 ==
LOC: JER 10:12 → JERBED 12:43 → J8W 17:20
PROVIDERS: ADMIT Surgery; ATTEND Surgery
PROC: 0DP64CZ Removal of Extraluminal Device from Stomach, Percutaneous Endoscopic Approach (ICD-10-PCS; principal; 2016-08-14 19:00)
DX: K95.09 Other complications of gastric band procedure (principal); R10.9 Unspecified abdominal pain; R13.10 Dysphagia, unspecified; R11.10 Vomiting, unspecified; K21.9 Gastro-esophageal reflux disease without esophagitis; F17.210 Nicotine dependence, cigarettes, uncomplicated; Z98.84 Bariatric surgery status; Y83.9 Surgical procedure, unspecified as the cause of abnormal reaction of the patient, or of later complication, without mention of misadventure at the time of the procedure
CPT/HCPCS: 36415; 71010-TC; 74247-TC; 80048; 80053; 81003; 81015; 82550; 83690; 83880; 84484; 84703; 85025; 85610; 88300-TC; 93005; 93010; 94010; 94760; 99285-25

== ENCOUNTER 2016-10-25 15:05 | Emergency (ER) | payer OTHER ==
[2016-10-25 15:21] VITALS: BP 135/83; PULSE 93; TEMP 98.4; BMI 32.3
--- NOTE | 2016-10-25 16:33 | PDOC ---
Attending Attestation - Resident Resident Name: Álvaro Sandy - ED Attending Attestation I have performed the following: I have examined & evaluated the patient, The case was reviewed & discussed with the resident, I agree w/resident's findings & plan, Exceptions are as noted - HPI HPI: 10/25/16 16:25 Chronic Back Pain/Arthritis presents with RUQ Pain (colicky) - Physicial Exam PE: 10/25/16 16:25 Diffuse Tenderness without peritoneal signs - Medical Decision Making 10/25/16 16:33 FERRIS with Imaging and Labs I agree with Dr. Sandy's assessment and plan
--- NOTE | 2016-10-25 16:42 | PDOC ---
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 The pain started last night at 9pm, is colicky, 7/10, mildly improved with ice packs and percocet (which she received for her chronic back pain). She had just gone to her PMD for f/u of her back pain, and was given a shot in her left back. Pt denies dysuria, frequency, urgency, pain worsened by fatty foods, trauma to her right side, any new exercises straining her back muscles, fevers, chills, n/v/d/c. 10/25/16 16:45 Past History - Past Medical History Allergies/Adverse Reactions: Allergies Allergy/AdvReac Type Severity Reaction Status Date / Time No Known Allergies Allergy Verified 10/25/16 15:18 Home Medications: Ambulatory Orders Hydrocodone/Acetaminophen [Hydrocodon-Acetaminophen 5-300] 1 each PO ASDIR 10/25 Anemia: No Asthma: No Cancer: No Cardiac Disorders: No CVA: No COPD: No CHF: No Dementia: No Diabetes: No GI Disorders: No Disorders: No HTN: No Hypercholesterolemia: No Liver Disease: No Seizures: No Thyroid Disease: No Other medical history: inflamation to right face, under care Comment:: 10/25/16 16:40 PMH: none other than stated above PSH: laparascopic banding w/ reversal s/p GERD symptoms 4 C-sections Meds: ibuprofen occasionally Allergies: NKDA Fam Hx: arthritis, HLD, and DM Social Hx: 34 pack year smoking history - Surgical History Abdominal Surgery: Yes (TUMMY TUCK,LAP BAND) Appendectomy: No Cardiac Surgery: No Cholecystectomy: No Lung Surgery: No Neurologic Surgery: No Orthopedic Surgery: No - Immunization History Td Vaccination: No Immunization Up to Date: Yes - Psycho/Social/Smoking Cessation Hx Anxiety: Yes Suicidal Ideation: No Smoking Status: Yes Smoking History: Current every day smoker Have you smoked in the past 12 months: Yes Number of Cigarettes Smoked Daily: 20 Information on smoking cessation initiated: No 'Breaking Loose' booklet given: 08/14/16 Hx Alcohol Use: No Drug/Substance Use Hx: No Substance Use Type: None Hx Substance Use Treatment: No Review of Systems - Review of Systems Comments:: 10/25/16 16:42 GENERAL: No fever, chills, night sweats, or weakness. HEAD, EYES, EARS, NOSE AND THROAT: No ear pain, or sore throat CARDIOVASCULAR: No chest pain or palpitations RESPIRATORY: No cough, wheezing, or hemoptysis. GASTROINTESTINAL: No nausea, vomiting, diarrhea, constipation, or blood in the stool. GENITOURINARY: No dysuria, frequency, or urgency MUSCULOSKELETAL: +lower back pain SKIN: No rashes or pruritis ENDOCRINE: No increased thirst. No abnormal weight change NEUROLOGIC: No headache, dizziness, loss of consciousness, or change in strength /sensation. *Physical Exam - Vital Signs Last Vital Signs Temp Pulse Resp BP Pulse Ox 98.4 F 93 H 18 135/83 100 10/25/16 15:18 10/25/16 15:18 10/25/16 15:18 10/25/16 15:18 10/25/16 15:18 - Physical Exam Comments: 10/25/16 16:43 GENERAL: Awake, alert, and fully oriented, in no acute distress HEAD: normocephalic, atraumatic HEENT: swelling around right eye NECK: Normal ROM, supple, no lymphadenopathy, JVD, or masses HEART: Regular rate and rhythm, normal S1 and S2, no murmurs, rubs or gallops, peripheral pulses normal and equal bilaterally. LUNGS: CTAB, no wheezing, no rales ABDOMEN: Soft, minimally tender to palpation on RUQ and RLQ, nondistended, normoactive bowel sounds. No guarding, no rebound. No masses BACK: +CVA tenderness on right side EXTREMITIES: Normal range of motion, no edema. SKIN: Warm, dry, no rashes or lesions noted. NEUROLOGICAL: Cranial nerves II through XII grossly intact. 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 Differential includes cholelithiasis vs. nephrolithiasis vs. muscle spasm vs. ovarian cyst rupture. -CBC: wnl -CMP: wnl -US: hepatomegaly without evidence of cholelithiasis and nephrolithiasis -UA: 1+ blood, otherwise normal -Urine preg test: negative 10/25/16 17:58 10/25/16 18:39 10/25/16 18:46 *DC/Admit/Observation/Transfer Diagnosis at time of Disposition: Muscle strain - Discharge Dispostion Disposition: HOME Condition at time of disposition: Stable Admit: No - Referrals Referrals: Aldair Green MD [Primary Care Provider] - - Patient Instructions Printed Discharge Instructions: Muscle Strain Additional Instructions: Ultrasound of your abdomen showed an enlarged liver but no evidence of any gallstones or kidney stones. Your labwork was normal. The source of your back/ abdominal pain might be a muscle strain. Take advil or tylenol as needed. Return to ED if your pain worsens or you experience any concerning symptoms. Please see your PMD within the next few days to follow up. - Attestations Physician Attestion: 10/25/16 18:46 I, Dr. Álvaro Sandy, attest that this document has been prepared under my direction and personally reviewed by me in its entirety. I further attest, that it accurately reflects all work, treatment, procedures and medical decision -making performed by me.
[2016-10-25 17:17] LABS: BASOPHIL 0.7 % (0-2.0); EOSINOPHIL 0.3 % (0-4.5); MCHC 33.7 g/dl (32.0-36.0); MEAN CELL VOLUME 80.3 fl (80-96); MEAN PLT VOLUME 7.3 fl (7.5-11.1); NEUTROPHILS 82.8 % (42.8-82.8); PLATELET COUNT 251 K/MM3 (134-434); RDW 15.6 % (11.6-15.6); WHITE BLOOD COUNT 10.6 K/mm3 (4.0-10.0)
[2016-10-25 17:18] LABS: URINE APPEARANCE CLEAR; URINE BILIRUBIN NEGATIVE (NEGATIVE); URINE BLOOD 1+ (NEGATIVE); URINE COLOR LTYELLOW; URINE GLUCOSE (UA) NEGATIVE (NEGATIVE); URINE KETONE NEGATIVE (NEGATIVE); URINE LEUK ESTERASE NEGATIVE (NEGATIVE); URINE NITRITE NEGATIVE (NEGATIVE); URINE PROTEIN NEGATIVE (NEGATIVE); URINE UROBILINOGEN NEGATIVE mg/dL (0.2-1.0)
[2016-10-25 17:20] LABS: URINE BACTERIA RARE /hpf (NONE SEEN); URINE MUCUS RARE; URINE RBC 3 /hpf (0-3); URINE WBC 1 /hpf (3-5)
[2016-10-25 17:49] LABS: ALBUMIN 3.7 g/dl (3.4-5.0); ANION GAP 8 (8-16); BILIRUBIN,TOTAL 0.3 mg/dL (0.2-1.0); CALCIUM 9.2 mg/dL (8.5-10.1); CO2 29 mmol/L (21-32); CREATININE 0.5 mg/dL (0.55-1.02); GLUCOSE,RANDOM 103 mg/dL (74-106); SGPT/ALT 30 U/L (12-78); TOT PROT 7.4 g/dl (6.4-8.2)
[2016-10-25 17:50] LABS: ALK PHOS 68 U/L (45-117)
[2016-10-25 17:54] LABS: SGOT/AST 15 U/L (15-37)
== END 2016-10-25 19:21 | disposition home or self-care (01) ==
LOC: JER 15:05
DX: S39.012A Strain of muscle, fascia and tendon of lower back, initial encounter (principal); X58.XXXA Exposure to other specified factors, initial encounter; Y93.89 Activity, other specified; Y92.9 Unspecified place or not applicable; G89.29 Other chronic pain; L92.8 Other granulomatous disorders of the skin and subcutaneous tissue
CPT/HCPCS: 36415; 76705-TC; 76775-TC; 80053; 81003; 81015; 84703; 85025; 99282-25

== ENCOUNTER 2017-05-02 11:03 | Inpatient (IN) | payer OTHER ==
[2017-05-01 18:12] VITALS: BMI 38.1
[~2017-05-02 11:03] MED LIST: BUPIVACAINE HCL/PF 0.5% (5MG/ML) 10 ML VIAL IJ ONE
--- NOTE | 2017-05-02 11:17 | HP ---
History & Physical Update - History History: No Change - Physical Physical: No Change - Assessment Assessment: No Change - Plan Plan: No Change (Laparoscopic possible open vertical sleeve gastrectomy, possible liver biopsy, EGD)
[2017-05-02] MEDS ORDERED: fentaNYL CITRATE 250 MCG/5 ML VIAL ONE (14:28)
[2017-05-02] MEDS ORDERED: MIDAZOLAM HCL 2 MG/2 ML SINGLE DOSE VIAL ONE (14:28)
[2017-05-02] MEDS ORDERED: PROPOFOL 20 ML ONE (14:53)
[2017-05-02] MEDS ORDERED: ceFAZolin SODIUM 1 GM VIAL IVPB ONE (14:55)
[2017-05-02] MEDS ORDERED: ROCURONIUM BROMIDE 50 MG/5 ML VIAL ONE (15:47)
[2017-05-02] MEDS ORDERED: NEOSTIGMINE METHYLSULFATE 0.5 MG/ML - 10 ML MDV ONE (16:10)
[2017-05-02] MEDS ORDERED: GLYCOPYRROLATE 0.2 MG/1 ML VIAL ONE (16:11)
[2017-05-02] MEDS: SODIUM CHLORIDE 1,000 ML IV SCH (16:39)
--- NOTE | 2017-05-02 16:44 | OP ---
Operative Note - Note: Operative Date: 05/02/17 Pre-Operative Diagnosis: Morbid obesity Operation: Laparoscopic vertical sleeve gastrectomy. Laparoscopic wedge liver biopsy. EGD Post-Operative Diagnosis: Other (Morbid obesity, hepatomegaly) Surgeon: Armand Romero Ripsaw Operator: Ruben Medina Anesthesia: General Specimens Removed: Greater curvature of stomach. Liver biopsy Estimated Blood Loss (mls): 30 Drains & Tubes with Location: [address] Operative Report Dictated: Yes
[2017-05-02] MEDS ORDERED: HYDROmorphone HCL CARPU-JECT 1 MG/1 ML DISP.SYRIN IVPB PRN (16:45)
[2017-05-02] MEDS ORDERED: ONDANSETRON 4 MG/2 ML VIAL ONE (16:49)
[2017-05-02] MEDS ORDERED: METOCLOPRAMIDE HCL INJECTION 10 MG/2 ML VIAL ONE (16:49)
[2017-05-02] MEDS ORDERED: HYDROmorphone HCL CARPU-JECT 4 MG/1 ML DISP.SYRIN ONE (16:49)
[2017-05-02] MEDS ORDERED: ACETAMINOPHEN INJECTION 100 ML IVPB ONE (16:50)
[2017-05-02] MEDS: HYDROmorphone HCL CARPU-JECT 1 MG/1 ML DISP.SYRIN IVPUSH PRN ×4 (17:00→19:10)
[2017-05-02] MEDS: ACETAMINOPHEN 1000 MG/100 ML VIAL (NON FORMULARY) IVPB SCH ×2 (17:00→21:49)
[2017-05-02] MEDS: ONDANSETRON 4 MG/2 ML VIAL IVPUSH SCH ×2 (17:15→21:34)
[2017-05-02] MEDS: METOCLOPRAMIDE HCL INJECTION 10 MG/2 ML VIAL IVPUSH SCH ×2 (17:45→21:49)
--- NOTE | 2017-05-02 18:05 | SPEC ---
DATE OF OPERATION: 05/02/2017 SURGEON: Thu Romero MD DUMPSTER OPERATOR: Ruben Medina MD PREOPERATIVE DIAGNOSES: 1. Morbid obesity. 2. BMI of 38.2. 3. Sleep apnea. POSTOPERATIVE DIAGNOSES: 1. Morbid obesity. 2. BMI of 38.2. 3. Sleep apnea. 4. Hepatomegaly. PROCEDURE: 1. Laparoscopic vertical sleeve gastrectomy. 2. Laparoscopic wedge liver biopsy. 3. Upper endoscopy/esophagogastroduodenoscopy. SPECIMEN: 1. Greater curvature of the stomach. 2. Liver biopsy. ESTIMATED BLOOD LOSS: 30 mL. DRAINS: None. ANESTHESIA: GET. BOUGIE: 36 Macedonian. REASON FOR PROCEDURE: This is a 52-year-old female who presents to the office for weight loss options. After describing different options, it was decided to proceed with a laparoscopic, possible open, vertical sleeve gastrectomy, possible liver biopsy and upper endoscopy. RISKS AND BENEFITS: After describing the different options for weight loss management, the patient decided to proceed with a laparoscopic, possible open vertical sleeve gastrectomy. The patient was seen by the respective subspecialties and cleared for surgery. The risks and benefits of the procedure were explained. These included bleeding, infection, hernia, PR, DVT, PE, injury to surrounding structures including the liver, colon, bowel, spleen, esophagus, vessel injury, nerve injury, weight regain, gastric leak, staple line leak, sleeve leak, obstruction, vitamin deficiency, hair loss and as some of the possible complications. The patient understood and signed informed consent. DESCRIPTION OF PROCEDURE: The patient was placed supine on the operating room table. The patient underwent general endotracheal intubation. A Dumont catheter was inserted. The arms were brought out at 90 degrees and secured. A footboard was placed and the legs were secured laterally with padding. The abdomen was prepped and draped in the usual sterile fashion. A timeout was performed. An incision was made in the left upper quadrant and a Veress needle inserted. Pneumoperitoneum was established. Subsequently, the Veress needle was removed and a 12-mm trocar was placed. The laparoscopic camera was then inserted and inspection of the abdominal cavity was performed. An incision was then made in the supraumbilical area and a 15-mm trocar was placed under direct visualization. A 5-mm trocar was then placed in the right upper quadrant and a 5-mm trocar was placed below the left subcostal margin. A stab wound was made in the subxiphoid area and a Orin clamp inserted and removed to dilate the tract. A Lilibeth liver retractor was inserted. The post was secured at the bedside by the nursing staff. The patient was placed in steep reverse Trendelenburg position and the Lilibeth liver retractor was used to secure the liver towards the anterior abdominal wall. The pylorus was identified and 6 cm proximal to it, the lesser sac was entered using the LigaSure device. All lateral attachments to the greater curvature of the stomach, including the short gastric vessels, were ligated using the LigaSure device toward the gastrosplenic and gastrophrenic ligaments. Once this was done in its entirety, it was confirmed that all tubes within the nasal or oropharyngeal cavity, including a temperature probe, was removed by Anesthesia. The bougie was then inserted by Anesthesia. Transection of the stomach was then begun staying adjacent to the bougie but away from the angularis. Transection of the stomach was performed near the portion of the stomach where the lesser sac was entered. Two laparoscopic Endo-JASON black kristofer were used at this location. Laparoscopic Endo JASON purple staple loads were then used for the remainder of the transection until the greater curvature of the stomach was fully transected. This was done staying close to the bougie. Care was taken to stay away from the angle of His cephalad. The staple line was then inspected. Hemostasis was identified. A leak test was then performed. It was clamped distally to the staple line. Irrigation solution was placed in the left upper quadrant and air was insufflated by Anesthesia into the sleeve. No leaks were identified. No obstruction was identified. This was done through the entirety of the staple line. At this point, the irrigation solution was suctioned and again, hemostasis was noted. A wedge liver biopsy was then performed. The left lobe of the liver was identified and a portion of the edge was grasped. Using electrocautery, a wedge of the liver was excised. This was removed and sent off the field as specimen. Hemostasis at the site of the wedge liver biopsy was attained using electrocautery. The 15-mm supraumbilical trocar was then removed and the greater curvature specimen removed from the site using a sponge stick vargas. The specimen was inspected and a Veress needle inserted. The specimen insufflated adequately and no leak was identified. The staple line was noted to be intact. A Dakota-Jaelyn device was then used to temporarily close the fascia with a 0 Vicryl suture at the site. The 15-mm trocar was then reinserted and the 12-mm trocar in the left upper quadrant was removed. The fascia at this site was then closed using the Dakota-Jaelyn device with a 0 Vicryl suture. Again, hemostasis was noted. The Lilibeth liver retractor was then removed under direct visualization. Pneumoperitoneum was desufflated and the fascial sutures were secured. Hemostasis was noted at all incision sites and Marcaine was injected at all incision sites. All incision sites were closed using 4-0 Biosyn. Sterile dressings were applied. The patient tolerated the procedure well and was transferred to the recovery room in stable condition with the Dumont catheter intact. The patient was transferred to telemetry for further monitoring. ADDENDUM: An upper endoscopy/EGD was performed. The endoscope was inserted into the patient's mouth. The entirety of the esophagus, GE junction, gastric pouch, and staple line were inspected. Hemostasis was noted. No leak or obstruction was noted. The endoscope was used to suction the stomach and fully removed intact. The patient tolerated the procedure well, was transferred to recovery room in stable condition. THU ROMERO M.D. [id number]
[2017-05-02 18:07] LABS: HEMATOCRIT 43.3 % (32.4-45.2); MCH 26.4 pg (25.7-33.7); MCHC 32.3 g/dl (32.0-36.0); MEAN CELL VOLUME 81.7 fl (80-96); MEAN PLT VOLUME 7.5 fl (7.5-11.1); PLATELET COUNT 258 K/MM3 (134-434); RDW 14.9 % (11.6-15.6); WHITE BLOOD COUNT 12.4 K/mm3 (4.0-10.0)
[2017-05-02 18:40] LABS: ALBUMIN 3.3 g/dl (3.4-5.0); ANION GAP 8 (8-16); BLOOD UREA NITROGEN 17 mg/dL (7-18); CALCIUM 8.3 mg/dL (8.5-10.1); CHLORIDE 106 mmol/L (98-107); CO2 25 mmol/L (21-32); GLUCOSE,RANDOM 144 mg/dL (74-106); POTASSIUM 3.8 mmol/L (3.5-5.1); SODIUM 139 mmol/L (136-145)
[2017-05-02 18:49] LABS: ALK PHOS 70 U/L (45-117); BILIRUBIN,TOTAL 0.3 mg/dL (0.2-1.0); CREATININE 0.7 mg/dL (0.55-1.02); SGOT/AST 27 U/L (15-37); SGPT/ALT 40 U/L (12-78); TOT PROT 6.5 g/dl (6.4-8.2)
[2017-05-02] MEDS: FAMOTIDINE 20 MG/50 ML IVPB 20 MG/50 ML MG IVPB SCH (21:36)
[2017-05-02] MEDS: ENOXAPARIN NA (PORCINE) 40 MG/0.4 ML DISP.SYRIN SQ SCH (21:38)
[2017-05-03] MEDS: ONDANSETRON 4 MG/2 ML VIAL IVPUSH SCH ×6 (00:58→21:49)
[2017-05-03] MEDS: HYDROmorphone HCL CARPU-JECT 4 MG/1 ML DISP.SYRIN IVPB PRN ×2 (01:01→08:03)
[2017-05-03] MEDS: ACETAMINOPHEN 1000 MG/100 ML VIAL (NON FORMULARY) IVPB SCH ×2 (04:51→11:42)
[2017-05-03] MEDS: METOCLOPRAMIDE HCL INJECTION 10 MG/2 ML VIAL IVPUSH SCH ×4 (04:51→21:50)
[2017-05-03 07:28] LABS: HEMATOCRIT 38.5 % (32.4-45.2); HEMOGLOBIN 12.8 GM/dL (10.7-15.3); MCHC 33.4 g/dl (32.0-36.0); MEAN CELL VOLUME 80.9 fl (80-96); MEAN PLT VOLUME 7.3 fl (7.5-11.1); PLATELET COUNT 262 K/MM3 (134-434); RBC 4.76 M/mm3 (3.60-5.2); RDW 15.1 % (11.6-15.6); WHITE BLOOD COUNT 11.3 K/mm3 (4.0-10.0)
[2017-05-03 07:57] LABS: CHLORIDE 107 mmol/L (98-107); POTASSIUM 3.7 mmol/L (3.5-5.1); SODIUM 142 mmol/L (136-145)
[2017-05-03 08:10] LABS: ALBUMIN 2.8 g/dl (3.4-5.0); ALK PHOS 60 U/L (45-117); ANION GAP 9 (8-16); BILIRUBIN,TOTAL 0.3 mg/dL (0.2-1.0); BLOOD UREA NITROGEN 13 mg/dL (7-18); CALCIUM 8.2 mg/dL (8.5-10.1); CO2 26 mmol/L (21-32); CREATININE 0.5 mg/dL (0.55-1.02); GLUCOSE,RANDOM 103 mg/dL (74-106); SGOT/AST 27 U/L (15-37); SGPT/ALT 41 U/L (12-78); TOT PROT 6.1 g/dl (6.4-8.2)
[2017-05-03] MEDS: ENOXAPARIN NA (PORCINE) 40 MG/0.4 ML DISP.SYRIN SQ SCH ×2 (09:58→21:49)
[2017-05-03] MEDS: SODIUM CHLORIDE 1,000 ML IV SCH (09:58)
[2017-05-03] MEDS: FAMOTIDINE 20 MG/50 ML IVPB 20 MG/50 ML MG IVPB SCH ×2 (09:59→21:49)
[2017-05-03] MEDS ORDERED: SODIUM CHLORIDE 1,000 ML IV SCH (11:45)
[2017-05-03] MEDS: oxyCODONE HCL 5 MG TABLET PO PRN ×2 (13:18→20:17)
--- NOTE | 2017-05-03 15:32 | PN ---
Progress Note (short form) - Note Progress Note: Anesthesia Pt seen and examined S:Alert and awake O: Vital Signs Temperature 99 F 05/03/17 14:00 Pulse Rate 74 05/03/17 14:00 Respiratory Rate 20 05/03/17 14:00 Blood Pressure 131/81 05/03/17 14:00 O2 Sat by Pulse Oximetry (%) 95 05/03/17 10:00 CBC, BMP 05/03/17 07:10 05/03/17 07:10 A/P: Current Active Problems BMI 38.0-38.9,adult (Acute) Hepatomegaly (Acute) Morbid obesity due to excess calories (Acute) s/pLap sleeve Doing well post op Continue current care Serge Billy MD
[2017-05-03] MEDS: HYDROmorphone HCL CARPU-JECT 2 MG/1 ML DISP.SYRIN IVPB PRN ×2 (16:41→21:50)
--- NOTE | 2017-05-03 20:51 | PN ---
Progress Note (short form) - Note Progress Note: POD 1 No nausea Pain controlled Vital Signs Period Temp Pulse Resp BP Sys/Silva Pulse Ox Last 24 Hr 98.7 F-99.1 F 72-78 18-20 120-140/76-93 90-95 Abd soft CBC, BMP 05/03/17 07:10 05/03/17 07:10 UGI: no leak/obstruction Clears Ambulate
[2017-05-04] MEDS: ONDANSETRON 4 MG/2 ML VIAL IVPUSH SCH ×3 (00:53→09:02)
[2017-05-04] MEDS: oxyCODONE HCL 5 MG TABLET PO PRN ×2 (00:53→09:32)
[2017-05-04] MEDS: HYDROmorphone HCL CARPU-JECT 2 MG/1 ML DISP.SYRIN IVPB PRN (04:43)
[2017-05-04] MEDS: METOCLOPRAMIDE HCL INJECTION 10 MG/2 ML VIAL IVPUSH SCH ×2 (05:01→10:40)
[2017-05-04] MEDS ORDERED: HYDROmorphone HCL CARPU-JECT 1 MG/1 ML DISP.SYRIN IVPB PRN (05:47)
[2017-05-04] MEDS: FAMOTIDINE 20 MG/50 ML IVPB 20 MG/50 ML MG IVPB SCH (09:04)
[2017-05-04] MEDS: ENOXAPARIN NA (PORCINE) 40 MG/0.4 ML DISP.SYRIN SQ SCH (09:06)
[2017-05-04 09:08] VITALS: BP 133/74; PULSE 86; TEMP 99
--- NOTE | 2017-05-08 18:10 | PATH ---
Surgical Pathology Report Patient Name: AMINA ARAIZA [facility]. Rec. #: [id number] /Age/Gender: 1965 (Age: 52) / F Account: [id number] Location: 4 W TELEMETRY U Taken: 05/02/2017 Received: 05/03/2017 Reported: 05/08/2017 Physicians: Armand Romero M.D. Specimen(s) Received A: GREATER CURVATURE STOMACH B: LIVER BIOPSY Clinical History Morbid obesity Final Diagnosis A. STOMACH, GREATER CURVATURE, LAPAROSCOPIC VERTICAL SLEEVE GASTRECTOMY: PORTION OF STOMACH WITH MILD CHRONIC GASTRITIS. IMMUNOHISTOCHEMICAL STAIN FOR H. PYLORI IS POSITIVE (FEW). B. LIVER, BIOPSY: LIVER PARENCHYMA WITH MILD PATCHY STEATOSIS (~10%). NO INCREASE IN IRON AND FIBROSIS ON PERFORMED SPECIAL STAINS (IRON AND TRICHROME). Comment: Subcapsular biopsy with thermal artifact. Electronically Signed Elza Hawkins M.D. Gross Description A. Received in formalin, labeled "greater curvature of stomach," is a 130 gram, 19.0 x 3.5 x 3.2 cm. portion of stomach with a stapled margin of resection. The serosa is worthy-feliciano with minimal attached fat. The mucosa is worthy-pink with normal folds. No mucosal masses are identified. Drafter Castings sections are submitted in one cassette. B. Received in formalin labeled "liver biopsy," is a 1.7 x 1.4 x 0.5 cm worthy, irregular portion of soft tissue, consistent with a portion of liver. The specimen is bisected and entirely submitted in one cassette. 05/06/2017 [facility]05/06/2017
== END 2017-05-04 11:43 | disposition home or self-care (01) | DRG 403 ==
LOC: JSAMEDAYSX 11:03 → EDSTATUS 17:00 → J4W 19:54
PROVIDERS: ADMIT Surgery; ATTEND Surgery
PROC: 0DB64Z3 Excision of Stomach, Percutaneous Endoscopic Approach, Vertical (ICD-10-PCS; principal; 2017-05-02 13:15)
PROC: 0FB24ZX Excision of Left Lobe Liver, Percutaneous Endoscopic Approach, Diagnostic (ICD-10-PCS; 2017-05-02 13:15)
PROC: 0DJ08ZZ Inspection of Upper Intestinal Tract, Via Natural or Artificial Opening Endoscopic (ICD-10-PCS; 2017-05-02 13:15)
DX: E66.01 Morbid (severe) obesity due to excess calories (principal); Z68.38 Body mass index [BMI] 38.0-38.9, adult; G47.30 Sleep apnea, unspecified; R16.0 Hepatomegaly, not elsewhere classified
CPT/HCPCS: 36415; 74241-TC-FY; 80053; 85027; 88307-TC; 94010; 94760

== ENCOUNTER 2017-09-17 08:48 | Day surgery (SDC) | payer OTHER ==
[2017-08-23 10:56] VITALS: BMI 32.6
--- NOTE | 2017-09-17 07:50 | HP ---
Satellite [facility] - Chief Complaint Chief Complaint: right knee pain - Past Medical History Allergies/Adverse Reactions: Allergies Allergy/AdvReac Type Severity Reaction Status Date / Time No Known Drug Allergies Allergy Verified 08/23/17 10:38 Gastrointestinal: Yes: Other (History of morbid obesity) ...LMP: 12/19/15 ...LMP Comment: MENOPAUSAL - Current Medications Current Medications: Home Medications Medication Instructions Recorded Prednisone 10 mg PO DAILY PRN 05/01/17 Famotidine [Pepcid] 20 mg PO BID #60 tablet 05/02/17 Acetaminophen [Tylenol -] 1,000 mg PO DAILY PRN 08/23/17 Satellite Physical Exam - Physical Examination General Appearance: Well Nourished, Well Developed, Alert & Oriented x3 ENT: Clear Lung: Normal air movement Heart: Regular rate & rhythm Extremities: Other (right knee- + swelling, + ttp medially, decr rom, nvi xrays show grade 4 medial djd) Neurological: Intact, Alert, Oriented Satellite Impression/Plan - Impression/Plan Impression: right knee medial djd Operative Procedure: right medial shari ukr Date to be Performed: 09/17/17
[~2017-09-17 08:48] MED LIST changes: -BUPIVACAINE HCL/PF 0.5% (5MG/ML) 10 ML VIAL IJ ONE; +CEFAZOLIN 2 GM in DEXTROSE 5%-WATER - 50 ML IVPB ONE; +CELECOXIB 200 MG CAPSULE PO ONE; +GABAPENTIN 300 MG CAPSULE (FP) PO ONE; +ROPIVICAINE 0.2%/MORPH PF/KETOROLAC - 51ML DISP.SYRINGE IA ONE; +TRANEXAMIC ACID 1000 MG/10 ML VIAL IVPUSH ONE; +oxyCODONE HCL 10 MG SUSTAINED ACTING TABLET PO ONE
[2017-09-17] MEDS ORDERED: ceFAZolin SODIUM 1 GM VIAL IVPB ONE (10:36)
[2017-09-17] MEDS ORDERED: GELATIN, ABSORBABLE 100 EACH SPONGE TP ONE (10:38)
[2017-09-17] MEDS ORDERED: THROMBIN (BOVINE) 5,000 UNIT VIAL TP ONE (10:39)
[2017-09-17] MEDS ORDERED: ROPIVICAINE 0.2%/MORPH PF/KETOROLAC - 51ML DISP.SYRINGE IA ONE (10:45)
[2017-09-17] MEDS ORDERED: MAG HYDROX/AL HYDROX/SIMETH 30 ML UNIT-DOSE CUP PO PRN (11:41)
[2017-09-17] MEDS ORDERED: ONDANSETRON 4 MG/2 ML VIAL IVPUSH PRN ×2 (11:41→11:53)
--- NOTE | 2017-09-17 11:44 | OP ---
Operative Note - Note: Operative Date: 09/17/17 (anastasiia) Pre-Operative Diagnosis: right knee medial djd Operation: right medial shari ukr Post-Operative Diagnosis: Same as Pre-op Surgeon: Cortez Corea Specification Consultant: Maxim Tucker Anesthesia: General, Local Specimens Removed: bone fragments Estimated Blood Loss (mls): 100 Operative Report Dictated: Yes
[2017-09-17] MEDS ORDERED: LACTATED RINGERS SOLUTION 1,000 ML IV SCH ×2 (11:45→12:00)
[2017-09-17] MEDS ORDERED: ACETAMINOPHEN 1000 MG/100 ML VIAL (NON FORMULARY) IVPB ONE ×2 (11:54→12:00)
[2017-09-17] MEDS ORDERED: oxyCODONE HCL 5 MG TABLET PO PRN ×2 (11:54)
[2017-09-17] MEDS ORDERED: oxyCODONE HCL 5 MG TABLET PO ONE (12:30)
[2017-09-17] MEDS ORDERED: oxyCODONE HCL 5 MG TABLET ONE (12:34)
--- NOTE | 2017-09-17 13:02 | SPEC ---
DATE OF OPERATION: 09/17/2017 PREOPERATIVE DIAGNOSIS: Degenerative joint disease, right knee. POSTOPERATIVE DIAGNOSIS: Degenerative joint disease, right knee. PROCEDURE: Right medial unicompartmental knee replacement with robotic-assisted navigation (MAKOplasty) and patelloplasty. SURGICAL ATTENDING: Cortez Corea MD WASH BOX OPERATOR: SOLOMON Sanchez ANESTHESIA: Regional and general with LMA. CLOSURE: A 4 femur, 4 tibia, and a 9 polyethylene; No. 1 Vicryl, fascia; 0 and 2-0, subcutaneous; 3-0 Monocryl subcuticular with skin glue for skin; 4-0 undyed Vicryl for pin sites. ESTIMATED BLOOD LOSS: Negligible. COMPLICATIONS: None. CONDITION: To recovery in stable condition. DESCRIPTION OF OPERATIVE PROCEDURE: Patient was taken to the operating room on September 17, 2017. Spinal and regional anesthesia was administered by the anesthesiologist. IV Kefzol and TXA were administered prophylactically prior to the case. A well-padded pneumatic tourniquet was placed on the right proximal thigh. The right lower extremity was prepped and draped in the usual sterile fashion. A 6- to 8-cm longitudinal incision over the medial side of the patella from mid patella to the tibial tubercle was incised and was deepened using Bovie cautery. An arthrotomy was then made just medial to the patellar tendon and the patella. Subperiosteal dissection was done on the anteromedial proximal tibia all the way back to the MCL. Partial fat pad excision was performed, exposing the medial compartment. Checkpoint was malleable at both the femur and the tibia. Using 2 stab incisions in the femur 1 handbreadth above the patella on the femur and 2 stab incisions 1 handbreadth below the tibial tubercle on the tibia, 2 threaded pins were drilled in parallel fashion from anterior to posterior, going through the proximal cortex and engaging the 2nd but not through the 2nd cortex. To these threaded pins were fastened navigation rays, 1 on the femur and 1 on the tibia. The knee was then registered with the navigation device with the center of the rotation of the hip, medial and lateral malleoli, and multiple points both on the femur and on the tibia. Excellent registration of less than 0.5 mm was obtained on both to ensure adequate registration. The navigation device ensured us to "pop the bubbles" both on the femur and the tibia and that was performed and passed registration. The knee was then thoroughly inspected to remove all osteophytes both on the femur and the tibia. Also, osteophytes on the trochlea and on the surface of the patella were removed as well. The knee was then stressed with valgus stress at 0, 30, 60, 90, and 120 degrees of flexion. This propagated a looseness/tightness graft. The virtual positions of the components were then optimized to ensure an excellent graft. The tracking also was optimized by manipulating the virtual position to ensure that the femoral component articulated with the central portion of the tibial component. The robot was then brought into the field and was registered. The robot was used to bur the bone on both the femur and the tibia as to the specifications of the components. The trial components were then applied on both the femur and the tibia with an appropriate polyethylene insert. The knee was taken through a range of motion and found to have full extension, full flexion, with excellent stability. Stressing the graft revealed an excellent looseness/tightness graft with the trial components in place. The trial components were removed. The knee was thoroughly irrigated with a copious amount of antibiotic irrigation. The real components were then cemented in using modern generation cement techniques with antibiotic cement and pressurization. After the cement was hardened, the knee was thoroughly inspected to remove out all excess cement. The real polyethylene insert was then clipped into place. Range of motion and stability were again assessed to be as they were with the trials. At this time, the pins and the checkpoints were removed. The knee was again thoroughly irrigated. The arthrotomy was closed with No. 1 Vicryl, 0 and 2-0 subcutaneous, and 3-0 Monocryl subcuticular with skin glue for the skin, 4-0 undyed Vicryl for the pin sites. Sterile pressure dressing was placed over the knee. Patient awakened from anesthesia and transferred to recovery in stable condition. No complications. Estimated blood loss negligible. X-rays postoperatively revealed excellent position of the components. Benigno [id number]
[2017-09-17] MEDS ORDERED: CEFAZOLIN 2 GM/D5W 2 GM/50 ML ML IVPB SCH (18:00)
[2017-09-17] MEDS: SENNOSIDES/DOCUSATE COMBO (SENNA PLUS) TABLET (UD) PO SCH (21:52)
[2017-09-17] MEDS: GABAPENTIN 300 MG CAPSULE (FP) PO SCH (21:52)
[2017-09-17] MEDS: oxyCODONE HCL 10 MG SUSTAINED ACTING TABLET PO SCH (21:52)
[2017-09-17 22:38] VITALS: TEMP 98
[2017-09-18] MEDS: ACETAMINOPHEN 325 MG TABLET (FP) PO SCH ×2 (00:08→05:18)
[2017-09-18 03:41] VITALS: BP 114/65; PULSE 70
[2017-09-18] MEDS ORDERED: ASPIRIN 325 MG TABLET PO SCH (08:00)
[2017-09-18] MEDS: GABAPENTIN 300 MG CAPSULE (FP) PO SCH (09:21)
[2017-09-18] MEDS: SENNOSIDES/DOCUSATE COMBO (SENNA PLUS) TABLET (UD) PO SCH (09:21)
[2017-09-18] MEDS: oxyCODONE HCL 10 MG SUSTAINED ACTING TABLET PO SCH (09:22)
[2017-09-18] MEDS ORDERED: PANTOPRAZOLE 40 MG TABLET (FP) PO SCH (10:00)
[2017-09-18] MEDS ORDERED: MULTIVITAMINS (DAILY MVI) TABLET (FP) PO SCH (10:00)
== END 2017-09-18 10:30 | disposition home health service (06) ==
LOC: FM/S 08:48 → FASU 08:48
PROVIDERS: ATTEND Orthopaedic Surgery
PROC: 8E0YXBZ Computer Assisted Procedure of Lower Extremity (ICD-10-PCS; 2017-09-17)
PROC: 8E0Y0CZ Robotic Assisted Procedure of Lower Extremity, Open Approach (ICD-10-PCS; 2017-09-17)
PROC: 0SRC0L9 Replacement of Right Knee Joint with Medial Unicondylar Synthetic Substitute, Cemented, Open Approach (ICD-10-PCS; principal; 2017-09-17 09:30)
DX: M17.11 Unilateral primary osteoarthritis, right knee (principal)
CPT/HCPCS: 20985; 27446; C1776; S2900; 73560-TC-RT-FY; 94760; 97116-GP; 97161-GP; J0131

== ENCOUNTER 2019-12-21 13:30 | Emergency (ER) | payer OTHER ==
[2019-12-21] MEDS ORDERED: IBUPROFEN 600 MG TABLET (FP) PO ONE ×2 (13:44→14:03)
--- NOTE | 2019-12-21 13:44 | PDOC ---
Rapid Medical Evaluation Chief Complaint: Injury Time Seen by Provider: 12/21/19 13:41 Medical Evaluation: Allergies Allergy/AdvReac Type Severity Reaction Status Date / Time celecoxib [From Celebrex] Allergy Itching Verified 12/21/19 13:42 12/21/19 13:42 I have performed a brief in-person examination on this patient. CC: left arm pain s/p slip and fall PE: left wrist deformity. +2 radial pulse. No elbow tenderness. NVI. ROM testing limited 2/2 pain and splint. Orders: xray, motrin Patient will proceed to ED for further evaluation. 12/21/19 13:44 Discharge Disposition - Diagnosis Left wrist pain - Referrals - Patient Instructions - Post Discharge Activity
[2019-12-21 13:46] VITALS: BP 159/100; PULSE 88; TEMP 98.2; BMI 34.9
[2019-12-21] MEDS ORDERED: LIDOCAINE HCL 1%, 10 MG/ML (50 mL VIAL) SQ ONE (14:21)
[2019-12-21] MEDS ORDERED: LIDOCAINE HCL 1%, 10 MG/ML (20ML VIAL) ONE (14:22)
--- NOTE | 2019-12-21 15:17 | PDOC ---
History of Present Illness - General Chief Complaint: Injury Stated Complaint: L/ARM INJURY Time Seen by Provider: 12/21/19 13:41 - History of Present Illness Initial Comments: 12/21/19 15:12 54-year-old female denies comorbidities presents for evaluation after mechanical fall at home. She denies hitting her head she complains of left wrist pain. Past History - Medical History Allergies/Adverse Reactions: Allergies Allergy/AdvReac Type Severity Reaction Status Date / Time celecoxib [From Celebrex] Allergy Itching Verified 12/21/19 13:42 Home Medications: Ambulatory Orders Prednisone 10 mg PO DAILY PRN 05/01/17 Famotidine [Pepcid] 20 mg PO BID #60 tablet 05/02/17 Acetaminophen [Tylenol .Extra-Strength -] 1,000 mg PO DAILY PRN 08/23/17 Aspirin [ASA -] 325 mg PO DAILY@0800 tablet 09/17/17 Oxycodone HCl/Acetaminophen [Percocet 5-325 mg Tablet -] 1 - 2 tab PO Q6H #50 tab MDD 8 09/17/17 Oxycodone HCl/Acetaminophen [Percocet 5-325 mg Tablet] 1 - 2 tab PO Q6H PRN #20 tab MDD 6 12/21/19 Anemia: No Asthma: No Cancer: No Cardiac Disorders: No CVA: No COPD: No CHF: No Dementia: No Diabetes: No GI Disorders: No Disorders: No HTN: No Hypercholesterolemia: No Liver Disease: No Seizures: No Thyroid Disease: No - Surgical History Abdominal Surgery: Yes (TUMMY TUCK,LAP BAND/SLEEVE 2018) Appendectomy: No Cardiac Surgery: No Cholecystectomy: No Lung Surgery: No Neurologic Surgery: No Orthopedic Surgery: No - Reproductive History Is Patient Now?: No - Immunization History Td Vaccination: No Immunization Up to Date: Yes - Psycho-Social/Smoking History Smoking Status: Yes Smoking History: Never smoked Have you smoked in the past 12 months: Yes Number of Cigarettes Smoked Daily: 20 Information on smoking cessation initiated: No 'Breaking Loose' booklet given: 05/02/17 - Substance Abuse Hx (Audit-C & DAST Scrn) How often the patient has a drink containing alcohol: Never Score: In Men: 4 or > Positive; In Women: 3 or > Positive: 0 Screen Result (Pos requires Nsg. Audit-10AR): Negative In the last yr the pt used illegal drug/Rx for NonMed reason: No Score: Yes response is considered Positive: 0 Screen Result (Positive result requires Nsg. DAST-10): Negative Review of Systems - Review of Systems Musculoskeletal: Yes: Joint Pain *Physical Exam - Vital Signs Last Vital Signs Temp Pulse Resp BP Pulse Ox 98.2 F 88 15 159/100 99 12/21/19 13:46 12/21/19 13:42 12/21/19 13:42 12/21/19 13:42 12/21/19 13:42 - Physical Exam 12/21/19 15:13 Left for skin color and temperature normal dinner fork deformity without gross sensorimotor deficits ED Treatment Course - RADIOLOGY Radiology Studies Ordered: Category Date Time Status WRIST-LEFT [RAD] Stat Radiology 12/21/19 14:44 Taken - Medications Given in the ED: ED Medications Discontinued Medications Generic Name Dose Route Start Last Admin Trade Name Freq PRN Reason Stop Dose Admin Ibuprofen 600 mg 12/21/19 13:44 12/21/19 14:03 Motrin - PO 12/21/19 13:45 600 mg ONCE ONE Administration Lidocaine HCl 20 ml 12/21/19 14:21 12/21/19 14:22 Xylocaine 1% SQ 12/21/19 14:22 20 ml ONCE ONE Administration Medical Decision Making - Medical Decision Making 12/21/19 15:13 Dorsally angulated about 45 degrees distal radius fracture on radiograph comminuted and impacted Aseptically 15 cc of 1% lidocaine without epinephrine was used for digital block gentle traction and countertraction with manipulation was used to reduce the fracture sugar tong splint was applied neurovascular intact post splint application Case discussed with orthopedic surgery who patient will follow-up with. Postreduction x-ray showed adequate alignment for now I have reviewed the pathophysiology with the patient. They are in agreement with the treatment plan all questions were answered to their satisfaction. Understanding for follow-up without fail was also conveyed to the patient. Again they are in agreement. Discharge - Discharge Information Problems reviewed: Yes Clinical Impression/Diagnosis: Left wrist pain, Wrist fracture, left Condition: Stable Disposition: HOME - Admission No - Additional Discharge Information Prescriptions: Oxycodone HCl/Acetaminophen [Percocet 5-325 mg Tablet] 1 - 2 tab PO Q6H PRN #20 tab MDD 6 PRN Reason: Pain - Follow up/Referral Referrals: Apuzzo,Wilbert R, MD [Primary Care Provider] - Joshua Zazueta DO [Staff Physician] - - Patient Discharge Instructions Additional Instructions: Please keep the splint in place until seen by orthopedic surgery. Please take the Percocet as directed no other Tylenol on top of the Percocet. NO anti- inflammatory such as Advil Motrin Aleve and ibuprofen and return to the [facility] room for any reason should you have further issues. Follow-up with orthopedic surgery within the next 1 to 2 days. - Post Discharge Activity
== END 2019-12-21 15:29 | disposition home or self-care (01) ==
LOC: JERFT 13:30
DX: S62.92XA Unspecified fracture of left hand, initial encounter for closed fracture (principal); M25.532 Pain in left wrist
CPT/HCPCS: 73110-TC-LT-FY; 73130-TC-LT-FY; 99284-25

== ENCOUNTER 2021-01-20 04:25 | Day surgery (SDC) | payer OTHER ==
[2021-01-19 08:37] VITALS: BMI 33.4
[~2021-01-20 04:25] MED LIST changes: +BUPIVACAINE HCL/PF 0.5% (5MG/ML) 10 ML VIAL IJ ONE; -CEFAZOLIN 2 GM in DEXTROSE 5%-WATER - 50 ML IVPB ONE; -CELECOXIB 200 MG CAPSULE PO ONE; -GABAPENTIN 300 MG CAPSULE (FP) PO ONE; +IOHEXOL 180 MG/1 ML ML IJ ONE; +LIDOCAINE HCL 1% PRESERVATIVE FREE - 30ML VIAL IJ ONE; -ROPIVICAINE 0.2%/MORPH PF/KETOROLAC - 51ML DISP.SYRINGE IA ONE; -TRANEXAMIC ACID 1000 MG/10 ML VIAL IVPUSH ONE; -oxyCODONE HCL 10 MG SUSTAINED ACTING TABLET PO ONE
[2021-01-20] MEDS ORDERED: TRIAMCINOLONE ACET 40MG/1ML VIAL ONE (07:39)
[2021-01-20] MEDS ORDERED: BUPIVACAINE HCL/PF 0.5% (5MG/ML) 10 ML VIAL ONE (07:39)
[2021-01-20] MEDS ORDERED: LIDOCAINE HCL/PF 1% SDV 5ML VIAL ONE (07:39)
[2021-01-20] MEDS ORDERED: BUPIVACAINE HCL/PF 0.75% 10 ML VIAL ONE (07:40)
[2021-01-20] MEDS ORDERED: DEXAMETHASONE SOD PHOSPHATE 10 MG/1 ML VIAL IVPUSH ONE (10:51)
[2021-01-20] MEDS ORDERED: LIDOCAINE HCL/PF 2% SDV 5ML VIAL INF ONE (10:51)
[2021-01-20 12:43] VITALS: PULSE 80; TEMP 97.9
[2021-01-20 12:48] VITALS: BP 128/80
== END 2021-01-20 11:45 | disposition home or self-care (01) ==
LOC: JASU-SURG 04:25
PROVIDERS: ATTEND Pain Medicine Pain Medicine
PROC: BR16YZZ Fluoroscopy of Lumbar Facet Joint(s) using Other Contrast (ICD-10-PCS; 2021-01-20)
PROC: 3E0T3BZ Introduction of Anesthetic Agent into Peripheral Nerves and Plexi, Percutaneous Approach (ICD-10-PCS; principal; 2021-01-20 09:30)
DX: M47.816 Spondylosis without myelopathy or radiculopathy, lumbar region (principal)
CPT/HCPCS: 76000-TC-FY; J1100

== ENCOUNTER 2021-03-28 04:32 | Day surgery (SDC) | payer OTHER ==
[2021-03-23 10:40] VITALS: BMI 31.9
[~2021-03-28 04:32] MED LIST changes: -LIDOCAINE HCL 1% PRESERVATIVE FREE - 30ML VIAL IJ ONE; +TRIAMCINOLONE ACET 40MG/1ML VIAL IJ ONE
[2021-03-28] MEDS ORDERED: TRIAMCINOLONE ACET 40MG/1ML VIAL ONE (07:26)
[2021-03-28] MEDS ORDERED: LIDOCAINE HCL/PF 1% SDV 5ML VIAL ONE (07:26)
[2021-03-28] MEDS ORDERED: BUPIVACAINE HCL/PF 0.5% (5MG/ML) 10 ML VIAL ONE (07:26)
[2021-03-28] MEDS ORDERED: BUPIVACAINE HCL/PF 0.75% 10 ML VIAL ONE (07:26)
[2021-03-28] MEDS ORDERED: LIDOCAINE HCL 1% PRESERVATIVE FREE - 30ML VIAL IJ ONE (09:04)
[2021-03-28] MEDS ORDERED: IOHEXOL 180 MG/1 ML ML IJ ONE (09:05)
[2021-03-28] MEDS ORDERED: BUPIVACAINE HCL/PF 0.5% (5MG/ML) 10 ML VIAL IJ ONE (09:06)
[2021-03-28] MEDS ORDERED: TRIAMCINOLONE ACET 40MG/1ML VIAL IJ ONE (09:06)
[2021-03-28] MEDS ORDERED: ACETAMINOPHEN 325 MG TABLET (FP) ONE (09:25)
[2021-03-28] MEDS ORDERED: ACETAMINOPHEN 325 MG TABLET (FP) PO ONE (09:25)
[2021-03-28 09:48] VITALS: PULSE 65; TEMP 97.7
[2021-03-28 09:52] VITALS: BP 140/72
== END 2021-03-28 09:35 | disposition home or self-care (01) ==
LOC: JASU-SURG 04:32
PROVIDERS: ATTEND Pain Medicine Pain Medicine
PROC: 3E0U3BZ Introduction of Anesthetic Agent into Joints, Percutaneous Approach (ICD-10-PCS; 2021-03-28)
PROC: 3E0U33Z Introduction of Anti-inflammatory into Joints, Percutaneous Approach (ICD-10-PCS; principal; 2021-03-28 08:30)
DX: M53.3 Sacrococcygeal disorders, not elsewhere classified (principal)
CPT/HCPCS: 76000-TC-FY

== ENCOUNTER 2021-11-22 08:56 | Emergency (ER) | payer OTHER ==
[2021-11-22 09:08] VITALS: BP 127/85; PULSE 54; RESP 22; TEMP 98; BMI 38.9
[2021-11-22] MEDS ORDERED: diazePAM 2 MG TABLET PO ONE (09:50)
[2021-11-22] MEDS ORDERED: diazePAM 2 MG TABLET ONE (09:53)
== END 2021-11-22 15:05 | disposition home or self-care (01) ==
LOC: JERFT 08:56 → JER 08:56 → JERFT 15:05
DX: M54.6 Pain in thoracic spine (principal)
CPT/HCPCS: 71046-TC-FY; 71250-TC; 72070-TC-FY; 99284-25